=== PATIENT | female | born 1985 | race African-American/Black ===

== ENCOUNTER 2019-06-30 17:20 | Emergency (ER) | payer MEDICAID, SELFPAY ==
[2019-06-30 17:21] VITALS: BP 107/74; PULSE 96; RESP 16; TEMP 36.9; O2SAT 100; BMI 24.8
--- NOTE | 2019-06-30 17:51 | RAD_ITS ---
STUDY: X-RAY CHEST REASON FOR EXAM: Female, 33 years old. CHEST PAIN, DIZZINESS, Palpitations, hair loss TECHNIQUE: 2 views COMPARISON: Prior chest radiograph of January 12, 2012 FINDINGS: The lungs are clear and expanded. There is no demonstrated pleural abnormality. Normal size heart. Normal mediastinum and yesy. Normal visualized pulmonary arteries. Normal visualized aortic arch and descending thoracic aorta. Normal visualized thoracic spine. Normal visualized ribs, clavicles, and shoulders. There is no demonstrated abnormality of the visualized soft tissue structures of the upper abdomen. RAD/Chest PA and Lateral IMPRESSION: Normal x-ray examination of the chest. Electronically Signed: Rona Espinosa MD at 18:54 EST , Service support ,
--- NOTE | 2019-06-30 17:51 | EKG12_ITS ---
Test Reason : CP Blood Pressure : / mmHG Vent. Rate : 082 BPM Atrial Rate : 082 BPM P-R Int : 154 ms QRS Dur : 074 ms QT Int : 344 ms P-R-T Axes : 035 023 033 degrees QTc Int : 401 ms Normal sinus rhythm Normal ECG Confirmed by CORNEL MILLAN, ANTONIO ([id number]), purchasing expeditor BEKAH GIMENEZ ([id number]) on 07/02/2019 8:12:38 AM Referred By: SANAM Confirmed By:GORGE UNGER MD
[2019-06-30 18:04] VITALS: O2SAT 100
[2019-06-30 18:16] LABS: Absolute Lymphocyte Count 2.35 X10^3/uL (0.83-4.51); Absolute Neutrophil Count 4.2 X10^3/uL (2.0-7.7); Basophil# 0.02 X10^3/uL; Basophil% 0.3 % (0-1); Eosinophil# 0.04 X10^3/uL; Eosinophils% 0.6 % (0-5); Hematocrit 38.7 % (37-47); Hemoglobin 12.8 g/dL (12.0-15.0); Lymphocyte # 2.35 X10^3/ul (4.0); Lymphocyte % 33.1 % (19-41); Mean Corp Hgb Conc 33.1 g/dL (32-36); Mean Corpuscular Hgb 31.9 pg (27.0-32.0); Mean Corpuscular Volume 96.5 fL (81-99); Mean Platelet Vol. 9.1 fl (6.2-12.0); Monocyte# 0.44 X10^3/uL; Monocyte% 6.2 % (0-10); NRBC Flagged by Analyzer 0 % (0-5); Neutrophil # 4.23 X10^3/uL (2.7-7.7); Neutrophil % 59.5 % (47-70); Platelet Count 274 K/mm3 (150-450); RBC Distribution Width CV 12.5 % (11.6-14.6); RBC Distribution Width SD 44.9 fl (35.1-43.9); Red Blood Count 4.01 M/mm3 (4.2-5.4); White Blood Count 7.1 K/mm3 (4.4-11.0)
[2019-06-30 18:20] VITALS: BP 101/67; PULSE 79; RESP 18; O2SAT 99
[2019-06-30 18:21] LABS: D-Dimer Quantitative (DVT/PE) 0.46 FEU/ug/m (0.27-0.49)
[2019-06-30 18:22] LABS: Internal QC Validated? YES +Cl - CLEAR BKGD; Pregnancy, Serum, hCG Quali. NEGATIVE Negative
[2019-06-30 18:33] LABS: Anion Gap 2 (5-15); BUN 19 mg/dL (7-18); BUN/Creat Ratio 26.8 RATIO (10-20); Calcium,Total 9.2 mg/dL (8.5-10.1); Chloride 108 mmol/L (98-107); Creatinine, Serum 0.71 mg/dL (0.55-1.02); EST Glomerular Filtration Rate 102 mL/min (>60); Est Glom Filt Rate - Afr Amer 123 mL/min (>60); Glucose 87 mg/dL (74-106); Magnesium 2.1 mg/dL (1.6-2.6); Potassium 3.8 mmol/L (3.5-5.1); Sodium Level 138 mmol/L (136-145); Thyroid Stim Hormone (TSH) 2.05 uIU/mL (0.358-3.74)
[2019-06-30 19:00] VITALS: BP 85/59; PULSE 71; RESP 16; O2SAT 97
[2019-06-30 19:23] VITALS: BP 91/64
--- NOTE | 2019-06-30 19:25 | ED.DCSUM_ITS ---
History of Present Illness Chief Complaint: Chest Pain Informant: Patient Narrative: Patient presenting secondary to chest pain. Patient reports that she has been dealing with chest pain and palpitations over the course the last 24 hours. She reports these have no exacerbating relieving factors. Patient states that has been associated with some intermittent lightheadedness. Patient does endorse that she has been undergoing some increased stress recently. Patient also reports that she has had around a 50 pound weight loss recently had that was intentional, but notes that over the course the last couple of weeks she has had some hair loss. She denies any changes in appetite, heat or cold intolerance, neck pain or any difficulty swallowing. She denies any DVT or PE risk factors. Review of systems otherwise negative. Past Medical History - Allergies and Home Meds Allergies/Adverse Reactions: Allergies bee venom protein (honey bee) Allergy (Verified 06/30/19 17:20) Unknown metoclopramide HCl [From Reglan] Adverse Reaction (Verified 06/30/19 17:20) Other Primary Care Physician: Troy Helms MD [Primary Care Provider] - Past Medical History: None Smoking Status: Current every day smoker Review of Systems All systems negative except as indicated General: Denies: Chills, Fever, Sweats Eyes: Denies: Visual changes - bilaterally, Diplopia ENT: Denies: Rhinorrhea, Sore throat Cardiovascular: Reports: Chest pain, Palpitations Respiratory: Denies: Dyspnea, Cough, Dyspnea on exertion Gastrointestinal: Denies: Abdominal pain, Nausea, Vomiting, Diarrhea, Melena, Hematochezia Genitourinary: Denies: Dysuria, Hematuria, Frequency Musculoskeletal: Denies: Back pain, Extremity Pain Skin: Denies: Rash, Wounds Neurological: Denies: Headache, Weakness, Numbness Physical Exam Vital Signs/Narrative: Vital Signs Temp Pulse Resp BP Pulse Ox 06/30/19 19:23 91/64 06/30/19 19:00 71 16 85/59 L 97 06/30/19 18:20 79 18 101/67 99 06/30/19 18:04 100 06/30/19 17:21 98.5 F 96 16 107/74 100 Inital Vital Signs reviewed: Yes General: Well nourished, Well developed, No Acute Distress Head: Normocephalic, Atraumatic Eyes: Perrl, EOMI ENT: Moist mucous membranes, No rhinorrhea, - - Thyroid is nontender with no palpable masses Neck: Supple, Nontender Cardiovascular: Regular rate, Regular rhythm, No murmurs Respiratory: No distress, CTA bilaterally, Chest nontender Abdomen: Soft, Nontender, Nondistended, Normal bowel sounds Back: Nontender, Normal Inspection Extremities: Nontender, No edema Skin: Normal color, No rash Neurological: Alert, Oriented x3, Cranial nerves II-XII grossly intact, Normal Strength, Normal Sensation Psychological: Normal affect, Normal Mood Diagnostic/Tx/Re-eval Chest X-Ray - ED: 2 View, Read by ED Physician, Read by Radiologist, Normal - EKG Initial EKG Interpretation: - - Sinus rhythm of [address] segments normal T waves normal CA and QTc intervals no evidence of acute ischemia or arrhythmia. No evidence of WPW or Brugada morphology. - Medical Decision Making Patient presented secondary to chest pain. Broad work-up was obtained. CBC chemistry troponin d-dimer TSH magnesium levels all found to be unremarkable. EKG unremarkable. Chest x-ray by my personal review as well as radiology also found to be unremarkable. Patient's heart score is low risk, I do not believe that she requires admission for observation. Heart score is a maximum of a 1. Patient does not have any evidence of pulmonary embolism, hyperthyroidism, elect rolyte dyscrasia. She did state that she is under increased stress recently which likely is the cause of the patient's symptoms. Patient was given reassurance she was instructed to follow-up with primary care. ED Disposition - Plan for ED Patient: Disposition: Home or Assisted Living Diagnosis: Chest pain Instructions: CHEST PAIN, Uncertain Cause Referrals: Troy Helms MD [Primary Care Provider] - 1 Week
[2019-06-30 19:31] VITALS: BP 91/64; PULSE 71; RESP 18; O2SAT 98
== END 2019-06-30 19:34 | disposition home or self-care (01) ==
PROVIDERS: Emergency Provider Emergency Medicine; PCP Family Medicine
DX: R07.9 Chest pain, unspecified (principal); R00.2 Palpitations; R42 Dizziness and giddiness; Z88.8 Allergy status to other drugs, medicaments and biological substances; F17.200 Nicotine dependence, unspecified, uncomplicated
CPT/HCPCS: 71046; 80048; 83735; 84443; 84484; 84703; 85025; 85379; 93005; 99284; A4216

== ENCOUNTER 2021-01-20 12:41 | Emergency (ER) | payer MEDICAID, SELFPAY ==
[2021-01-20 12:42] VITALS: BP 108/79; PULSE 118; RESP 16; TEMP 36.2; O2SAT 99; BMI 28.7
--- NOTE | 2021-01-20 12:47 | RAD_ITS ---
STUDY: X-RAY - UNILATERAL RIBS ( RIGHT ) WITH CHEST REASON FOR EXAM: Female, 35 years old. Right rib pain. TECHNIQUE - RIBS: 2 view(s) of the ribs. TECHNIQUE - CHEST: Single frontal view of the chest. COMPARISON: Chest x-ray dated 06/30/2019. FINDINGS - RIBS: Normal visualized ribs without a demonstrated fracture. FINDINGS - CHEST: The lungs are clear and expanded. There is no demonstrated pleural abnormality. Normal size heart. Normal mediastinum and yesy. Normal visualized pulmonary arteries. Normal visualized aortic arch and descending thoracic aorta. Normal visualized thoracic spine. Normal visualized ribs, clavicles, and shoulders. There is no demonstrated abnormality of the visualized soft tissue structures of the upper abdomen. RAD/Ribs Uni Min 3V w/PA Chest IMPRESSION: RIBS: Normal x-ray examination of the ribs. CHEST: No interval change. Normal chest. Electronically Signed: Hugo Simon MD at 14:12 EDT , Service support ,
--- NOTE | 2021-01-20 15:27 | EDS_ITS ---
HPI History of Present Illness Chief Complaint: Chest Other Informant: patient Onset/Context/Timing Onset: Days (4) Mechanism/Context: Fall Quality of Pain: Sharp and Aching Location: Right lower chest Worsened by: Movement Relieved by: Rest in certain positions Associated Symptoms Associated Symptoms: Negative for Parasthesias, Weakness, Loss of function, Inability to ambulate and Loss of consciousness Narrative Narrative: Patient presents with right rib and lower chest pain that began after a fall 4 days ago. Patient states she slipped coming down some stairs. Patient states she grabbed the handrail. Patient does not remember hitting her chest. Patient states her pain is worse with certain movements. Patient denies any paresthesias or weakness. Patient denies any head injury or loss of consciousness. Patient denies any other injuries. [facility] Medical History Asthma Home Medications naproxen 500 mg PO BID PRN #20 tab 01/20/21 [Rx Last Taken Unknown] Allergy/AdvReac Type Severity Reaction Status Date / Time bee venom protein (honey bee) Allergy Unknown Verified 01/20/21 12:44 metoclopramide HCl AdvReac Other Verified 01/20/21 12:44 [From Reglan] Family History Other Cancer Surgical History no surgical history no surgical history Social History Smoking Status: Former smoker alcohol intake: never ROS ROS ED Constitutional Constitutional ED: Denies chills or fever(s) Eyes Eyes: Denies blurry vision or change in vision ENT ENT ED: Denies rhinorrhea or sore throat Cardiovascular Cardiovascular: Reports chest pain; Denies palpitations Respiratory/Chest Respiratory/Chest: Denies cough or dyspnea Gastrointestinal Gastrointestinal: Denies nausea or vomiting Genitourinary Genitourinary ED: Denies dysuria or hematuria Musculoskeletal Musculoskeletal: Denies back pain or neck pain Integumentary Denies abscess or rash Neurologic Neurologic: Reports headache(s); Denies weakness Allergic/Immunologic Allergic/Immunologic ED: Denies mouth swelling or urticaria EXAM Physical Exam Const Vital Signs: 01/20/21 12:42 01/20/21 14:14 Temperature 97.2 F L Temperature Source Temporal Pulse Rate 118 H Respiratory Rate 16 Respiratory Effort Normal Blood Pressure 108/79 Blood Pressure Mean 88 Pulse Ox 99 Oxygen Delivery Method Room Air Positive well nourished and well developed General Appearance ED: well developed HEENT Reports moist mucous membranes Neck supple and no JVD Chest Wall Chest Narrative: There is tenderness to palpation over the right lower ribs and right costal margin. There is no bony crepitance or step-off. There is no edema or ecchymosis. Resp normal respiratory effort and clear to auscultation bilaterally Cardio regular rate, regular rhythm and no murmurs GI normal to inspection, nondistended, normoactive bowel sounds and non-tender Palpation: soft Extremity normal to inspection General Extremety ED: Negative for edema or tenderness General Extremity: Negative for edema Neuro oriented x3, CN's II-XII intact bilaterally and no sensory deficits noted Sensorium / Orientation: alert Motor Exam: strength 5/5 throughout Psych mental status grossly normal Skin no rashes or lesions noted MDM MDM MDM Narrative Medical decision making narrative: X-rays of the right ribs were obtained. There are 3 views. On my interpretation, there are no acute rib fractures. There is no pneumothorax. There is no acute cardiopulmonary process. Radiologist also interpreted the x-rays and agrees. Patient was given a dose of Naprosyn here. Patient was given a prescription for Naprosyn. Patient was instructed to use ice to the area. Patient was instructed to take 10-15 deep breaths every hour while awake to prevent atelectasis and pneumonia. Patient was instructed to follow-up with her primary care physician in 5 to 7 days. Patient understood and was agreeable with the plan. All questions were answered. Radiography Diagnostic Testing: Radiology Impression Ribs w/Chest X-Ray 01/20/21 12:47 IMPRESSION: RIBS: Normal x-ray examination of the ribs. CHEST: No interval change. Normal chest. Electronically Signed: Hugo Simon MD at 14:12 EDT , Service support , Discharge Plan Triage Chief Complaint: Chest Other ED Provider: Jose Carlos Reyes Dx/Rx/DC Orders Clinical Impression: Right-sided chest wall pain Instructions: ED Strain Chest Wall Prescriptions: New naproxen 500 MG tablet 500 mg PO BID PRN Qty: 20 RF: 0 Primary Care Provider: Troy Helms Referrals: Troy Helms MD [Primary Care Provider] - 5-7 Days Disposition Disposition: Home, Self Care
--- NOTE | 2021-01-20 15:44 | ED.RN ---
RN went in to answer call light. Pt angry saying I am confused, the doctor said I would get a muscle relaxer and comes in here just now, telling me he is giving me naproxen. That's tylenol. Pt continuing to raise voice at RN. I told the patient earlier on my assessment the physician might assess the area that is tender with alittle bit more pressure than me. the patient then stated the physician barely touched the area. That she has been treated with discrimination since she has been here and wondering why we aren't treating her,do i need to bring my white mother in here . this RN discussed with the patient that that is not the reason. After continuously being yelled at this RN told the patient I personally did not discriminate and that was not the case while she was here. Patient not slowing down and continuining to share her frustration about being to 5 doctors and not getting treated properly or a diagnosis . Pt reiterating that she wants something for pain and to help her sleep since she has 4 kids and has to work. discussed that if narcotics were prescribed which are not usually prescibed for muscle strain, that if they were she will be considered to be under the influence and unable to work or drive if taking for 4-6 hours post administration. Pt wanting a muscle relaxer to sleep and RN discussed that this was a gap in communication and sometimes things are forgotten, if she wanted them and it wasn't prescribed I would willing ask the provider for one. Pt throughout this conversation was yelling, not allowing me to answer her questions and at the very end told me I hope to god your right about the diagnosis because i recorded this conversation and will be taking it to my vehicle washer.
== END 2021-01-20 16:10 | disposition home or self-care (01) ==
PROVIDERS: Emergency Provider Emergency Medicine; PCP Family Medicine
DX: R07.89 Other chest pain (principal); J45.909 Unspecified asthma, uncomplicated; R51.9 Headache, unspecified; Z87.891 Personal history of nicotine dependence
CPT/HCPCS: 71101; 99282